=== PATIENT | male | born 1985 | race Caucasian/White ===

== ENCOUNTER → 2017-10-27 | Outpatient (REF) | payer BC ==
[2017-10-27 17:02] LABS: THYROID PEROXIDASE ANTIBODY < 28.0 U/ML (<60.0)
[2017-10-27 17:02] LABS: THYROGLOBULIN ANTIBODY 40.1 U/ML (<60.0)
== END ==
LOC: M LAB REF 16:36
DX: E03.9 Hypothyroidism, unspecified (principal)
CPT/HCPCS: 86800

== ENCOUNTER 2017-12-31 13:48 | Emergency (ER) | payer BC | END 2017-12-31 14:35 | disposition home or self-care (01) | LOC: M ED 13:48 | DX: L03.312 Cellulitis of back [any part except buttock and flank] (principal); Z79.899 Other long term (current) drug therapy | CPT/HCPCS: 99282 ==

== ENCOUNTER 2021-02-09 19:27 | Emergency (ER) | payer OTHER, BC ==
[~2021-02-09] VITALS: Ht 167.6 cm; Wt 106.1 kg
[~2021-02-09 19:27] MED LIST: AUGM875T28 PO; IBUP-1022 PO; VALS40TA9 PO
[2021-02-09] MEDS ORDERED: BOOSTRIX/ADACEL VACCINE (DIPHTH/PERTUSS/ACELL/TETANUS) 0.5ML SYR IM ONE (21:45)
[2021-02-09] MEDS ORDERED: IBUP-1022 PO (21:53)
[2021-02-09 22:17] VITALS: BP 163/90
== END 2021-02-09 22:28 | disposition home or self-care (01) ==
LOC: M ED 19:27
DX: T22.132A Burn of first degree of left upper arm, initial encounter (principal); T22.112A Burn of first degree of left forearm, initial encounter; T23.101A Burn of first degree of right hand, unspecified site, initial encounter; T24.131A Burn of first degree of right lower leg, initial encounter; T31.0 Burns involving less than 10% of body surface; T65.91XA Toxic effect of unspecified substance, accidental (unintentional), initial encounter; X58.XXXA Exposure to other specified factors, initial encounter; Y92.89 Other specified places as the place of occurrence of the external cause; Y93.9 Activity, unspecified; Y99.0 Civilian activity done for income or pay; I10 Essential (primary) hypertension

== ENCOUNTER 2023-01-06 19:51 | Emergency (ER) | payer BC, OTHER ==
[~2023-01-06] VITALS: Ht 167.6 cm; Wt 100.1 kg
[2023-01-06 20:48] LABS: BASO # 0.1 10^3/uL (0.0-0.2); BASO % 0.6 % (0.0-1.0); EOS # 0.1 10^3/uL (0.0-0.5); EOS % 0.8 % (0.0-3.0); HEMATOCRIT 43.2 % (42.0-52.0); HEMOGLOBIN 14.7 g/dl (13.5-17.5); LYMPH # 2.7 10^3/uL (1.5-5.0); LYMPH % 17.4 % (24.0-44.0); MEAN CORPUSCULAR HEMOGLOBIN 28.6 pg (27.0-33.0); MONO # 1.2 10^3/uL (0.0-0.8); MONO % 7.9 % (2.0-8.0); NEUTROPHILS # 11.4 10^3/uL (1.5-8.5); PLATELET COUNT, AUTOMATED 420 10^3/uL (150-450); RED BLOOD COUNT 5.14 10^6/uL (4.30-6.10); WHITE BLOOD COUNT 15.6 10^3/uL (4.0-10.0)
[2023-01-06 21:14] LABS: ERYTHROCYTE SEDIMENTATION RATE 68 mm/hr (0-15)
[2023-01-06] MEDS ORDERED: NS 1,000 ML IV ONE ×2 (21:45)
[2023-01-06] MEDS ORDERED: MORPHINE 4 MG/ML 1ML VIAL IV ONE (21:45)
[2023-01-06] MEDS ORDERED: ONDANSETRON 4MG 2ML VIAL IV ONE (21:45)
[2023-01-06] MEDS ORDERED: ISOVUE-370 76% 100ML VIAL As Ordered ONE (21:51)
[2023-01-06 22:44] LABS: MONO REFLEX EBV COMP NEGATIVE (NEGATIVE)
[2023-01-06] MEDS ORDERED: AMOX875T2 PO (23:15)
[2023-01-06] MEDS ORDERED: AMPICILLIN SOD/SULBACTAM SOD 3 GM in D5W MINI-BAG PLUS 100 ML IV ONE (23:15)
[2023-01-06] MEDS ORDERED: IRBE75TA4 PO (23:15)
[2023-01-06 23:19] LABS: RSV AMPLIFICATION NEGATIVE (NEGATIVE)
[2023-01-06] MEDS ORDERED: HOME MED LIST COMPLETE! XX SCH (23:20)
[2023-01-07] MEDS ORDERED: LIDOCAINE W/EPINEPHRINE 1% 20ML VIAL SC ONE (00:05)
[2023-01-07] MEDS ORDERED: HYDR-3713 PO (00:26)
[2023-01-07] MEDS ORDERED: OXYCODONE/APAP 5MG/325MG(HOME DOSE PACK) PO ONE (00:30)
[2023-01-07] MEDS ORDERED: MORPHINE 4 MG/ML 1ML VIAL IV ONE (00:30)
[2023-01-07 01:13] VITALS: BP 144/98
[2023-01-09 16:08] LABS: EBV VIRAL CAPSID AG IgM <36.0 U/mL (0.0-35.9)
== END 2023-01-07 01:25 | disposition home or self-care (01) ==
LOC: M ED 19:51
DX: J36 Peritonsillar abscess (principal); I10 Essential (primary) hypertension; Z79.899 Other long term (current) drug therapy
CPT/HCPCS: 70491; 80047; 83605; 85025; 85652; 86140; 86308; 86664; 86665; 87040; 87070; 87631; 96365; 96375; 96376; 99284; J0295; J1100; J2405; Q9967